=== PATIENT | male | born 1995 | race Caucasian/White ===

== ENCOUNTER 2016-05-30 06:46 | Emergency (ER) | payer OTHER | END 2016-05-30 09:03 | disposition home or self-care (01) | LOC: ER 06:46 | DX: N13.2 Hydronephrosis with renal and ureteral calculous obstruction (principal) | CPT/HCPCS: 36415; 96361; 96374; 96375; J1885 ==

== ENCOUNTER 2016-06-01 22:18 | Observation (INO) | payer OTHER ==
[~2016-06-01] VITALS: Ht 172.7 cm; Wt 106.1 kg
--- NOTE | 2016-06-02 13:16 | NUR ---
1305- PATIENT TAKEN TO OR PER HOSPITAL BED VIA OR NURSING STAFF. NO S/S OF DISTRESS.
--- NOTE | 2016-06-02 15:33 | NUR ---
1500- PT RETURNED TO ROOM 312, S/P URETEROSCOPY WITH LASER AND BASKET REMOVAL OF STONE. DROWSY, BUT AROUSES EASILY. VS STABLE. NO COMPLAINTS OF PAIN. FAMILY AT BEDSIDE.
== END 2016-06-02 17:00 | disposition home or self-care (01) ==
LOC: ER 22:18 → MED 06-02 01:24
PROVIDERS: ADMIT Internal Medicine
DX: N13.2 Hydronephrosis with renal and ureteral calculous obstruction (principal); Z79.899 Other long term (current) drug therapy; Z90.89 Acquired absence of other organs
CPT/HCPCS: 96361; 96374; 96375; 96376; C1894; C2617; G0378; J1885; J2550; J2704; J2765; Q9967

== ENCOUNTER 2016-06-01 22:18 | Emergency (ER) | payer OTHER | END 2016-06-02 01:24 | disposition critical access hospital (66) | LOC: ER 22:18 | DX: N20.1 Calculus of ureter (principal); Z87.442 Personal history of urinary calculi | CPT/HCPCS: 96361; 96374; 96375 ==

== ENCOUNTER 2016-06-04 05:52 | Emergency (ER) | payer OTHER | END 2016-06-04 07:08 | disposition home or self-care (01) | LOC: ER 05:52 | DX: N23 Unspecified renal colic (principal); Z98.890 Other specified postprocedural states; Z79.891 Long term (current) use of opiate analgesic ==